=== PATIENT | male | born 1945 | race Caucasian/White ===

== ENCOUNTER 2021-06-15 18:11 | Inpatient (IN) ==
[2021-06-15] MEDS ORDERED: DILTIAZEM 50 MG/10 ML VIAL IV ONE (18:46)
[2021-06-15 18:47] LABS: Basophils # 0.1 10*3/uL (0.0-0.2); Basophils % 0.4 % (0.0-0.8); Eosinophils % 0.4 % (0.00-10.9); Hematocrit 30.8 VOL% (42.0-52.0); Hemoglobin 9.7 GM/DL (14.0-18.0); Immature Granulocytes % 1.1 %; Immature Granulocytes Absolute 0.12 #; Lymphocytes # 1.3 10*3/uL (1.4-4.0); Lymphocytes % 11.8 % (21.2-54.2); Mean Corpuscular HGB Conc 31.5 GM/DL (32-36); Mean Corpuscular Volume 99.4 FL (87-102); Mean Platelet Volume 10.2 FL (9.6-12.0); Monocytes % 9.7 % (1.7-12.7); Neutrophils % 76.6 % (38.7-73.9); Platelet Count 253 T/CUMM (130-400); Red Cell Distribution Width 15.5 % (9.3-17.3); White Blood Count 11.3 T/CUMM (4-12)
[2021-06-15] MEDS ORDERED: SODIUM CHLORIDE 0.9% 1,000 ML IV STA (18:48)
[2021-06-15] MEDS ORDERED: DILTIAZEM 50 MG/10 ML VIAL IV STA (18:49)
[2021-06-15 19:10] LABS: Albumin 3.5 G/DL (3.4-5.0); Bilirubin,Total 0.8 MG/DL (0.20-1.00); Calcium 9.3 MG/DL (8.5-10.1); Osmolality,Calculated 286.2 MOS/KG (273-304); Potassium 4.8 MMOL/L (3.5-5.1); Total Protein 6.8 G/DL (6.4-8.2)
[2021-06-15] MEDS ORDERED: ENOXAPARIN 30 MG/0.3 ML SYRINGE SUBCUT STA (19:19)
[2021-06-15] MEDS ORDERED: AMIODARONE INJ 150 MG in DEXTROSE 5% 100 ML IV ONE (19:49)
[2021-06-15] MEDS ORDERED: AMIODARONE INJ 450 MG in DEXTROSE 5% 241 ML IV SCH (20:00)
[2021-06-15] MEDS ORDERED: SODIUM CHLORIDE 0.9% 2,000 ML IV STA (20:01)
[2021-06-15] MEDS ORDERED: PIPERACILLIN/TAZOBACTAM 3,375 MG in SODIUM CHLORIDE 0.9% 100 ML IV STA (20:01)
[2021-06-15] MEDS ORDERED: ENOXAPARIN 100 MG/ML SYRINGE SUBCUT ONE (20:09)
[2021-06-15] MEDS ORDERED: methylPREDNISolone SOD SUC 125 MG/2 ML VIAL IV ONE (20:17)
[2021-06-15] MEDS ORDERED: ASPIRIN CHEW 81 MG TABLET PO STA (20:19)
[2021-06-15] MEDS ORDERED: FUROSEMIDE 40 MG/4 ML VIAL IV STA ×2 (20:19→21:31)
[2021-06-15] MEDS ORDERED: MAGNESIUM SULF RIDER 2 GM/50 ML PREMIX IV PRN (20:51)
[2021-06-15] MEDS ORDERED: DEXTROSE 10% 250 ML BAG IV PRN (20:51)
[2021-06-15] MEDS ORDERED: MAGNESIUM SULF RIDER 4 GM/100 ML PREMIX IV PRN (20:51)
[2021-06-15] MEDS ORDERED: GLUCAGON 1 MG VIAL IM PRN (20:51)
[2021-06-15] MEDS ORDERED: POTASSIUM CHLORIDE RIDER 10 MEQ/100 ML PREMIX IV PRN (20:56)
[2021-06-15] MEDS ORDERED: SIMETHICONE CHEW 125 MG TABLET PO PRN (20:56)
[2021-06-15] MEDS ORDERED: ACETAMINOPHEN 325 MG TABLET PO PRN (20:56)
[2021-06-15] MEDS ORDERED: ONDANSETRON 4 MG/2 ML VIAL IV PRN (20:56)
[2021-06-15 21:05] LABS: ABG Base Excess -1.8 MMOL/L (-2.5-2.5); ABG HCO3 22.8 MMOL/L (20-26); ABG Oxygen Saturation 89.7 % (95-100); ABG PCO2 42.9 MM HG (35-48); ABG PH 7.352 (7.35-7.45); ABG PO2 67.2 MM HG (80-95); ABG TCO2 21.9 MMOL/L (23-27); Allen Test Positive
[2021-06-15] MEDS ORDERED: carvediloL 3.125 MG TABLET PO SCH (21:30)
[2021-06-15] MEDS: ASCORBIC ACID 500 MG TABLET PO SCH (22:08)
[2021-06-15] MEDS: guaiFENesin/DM ER 600-30 MG TABLET PO SCH (22:08)
[2021-06-15] MEDS: INSULIN REGULAR 100 UNIT/ML SUBCUT SCH (22:08)
[2021-06-15 22:45] LABS: Bilirubin,Urine Negative (Negative); Blood, Urine Negative (Negative); Glucose,Urine (UA) 50 mg/dL (Negative); Hyaline Casts,Urine 1 /LPF (0-3); Ketones,Urine Negative (Negative); Nitrite,Urine Negative (Negative); Protein,Urine Negative; RBC,Urine 2 /HPF (0-4); Squamous Epithelial Cell,Urine Occasional /HPF (0-10); Urine Appearance CLEAR (Clear); Urine Color Straw (Yellow); Urine Specific Gravity 1.026 (1.001-1.035); Urine Urobilinogen < 2.0 EU/DL (<2.0)
[2021-06-16] MEDS: LEVALBUTEROL 1.25 MG/3 ML NEB RESP TX SCH ×4 (00:16→19:35)
[2021-06-16] MEDS ORDERED: ALBUTEROL/IPRATROPIUM 3 ML NEB RESP TX SCH (01:00)
[2021-06-16] MEDS: MELATONIN 3 MG TABLET PO PRN (02:20)
[2021-06-16] MEDS: VANCOMYCIN INJ 1,750 MG in SODIUM CHLORIDE 0.9% 500 ML IV SCH (02:50)
[2021-06-16 04:31] LABS: Basophils % 0.2 % (0.0-0.8); Hemoglobin 8.7 GM/DL (14.0-18.0); Immature Granulocytes % 0.6 %; Immature Granulocytes Absolute 0.06 #; Lymphocytes # 0.6 10*3/uL (1.4-4.0); Lymphocytes % 6.5 % (21.2-54.2); Mean Corpuscular HGB Conc 31.1 GM/DL (32-36); Mean Platelet Volume 10.4 FL (9.6-12.0); Monocytes % 4.6 % (1.7-12.7); Neutrophils % 88.1 % (38.7-73.9); Platelet Count 212 T/CUMM (130-400); Red Cell Distribution Width 15.3 % (9.3-17.3); White Blood Count 9.5 T/CUMM (4-12)
[2021-06-16 04:37] LABS: INR 1.1; PT Patient Result 12.7 SECS (10.5-12.0)
[2021-06-16 05:24] LABS: Calcium 8.4 MG/DL (8.5-10.1); Ferritin 52.7 ng/mL (26-388); Osmolality,Calculated 291.8 MOS/KG (273-304); Potassium 5.2 MMOL/L (3.5-5.1); Risk Ratio 3.68; Thyroid Stimulating Hormone 0.996 uIU/ml (0.358-3.74); VLDL Cholesterol 31.6 MG/DL
[2021-06-16] MEDS: methylPREDNISolone SOD SUC 40 MG/1 ML VIAL IV SCH ×3 (06:20→21:46)
[2021-06-16] MEDS: PIPERACILLIN/TAZOBACTAM 3,375 MG in SODIUM CHLORIDE 0.9% 100 ML IV SCH ×3 (06:23→21:47)
[2021-06-16] MEDS: INSULIN REGULAR 100 UNIT/ML SUBCUT SCH ×4 (08:43→21:46)
[2021-06-16] MEDS ORDERED: ASPIRIN EC 325 MG TABLET PO SCH (09:00)
[2021-06-16] MEDS ORDERED: LOSARTAN 25 MG TABLET PO SCH (09:00)
[2021-06-16] MEDS: FUROSEMIDE 40 MG/4 ML VIAL IV SCH ×2 (09:00→17:00)
[2021-06-16] MEDS: ENOXAPARIN 120 MG/0.8 ML SYRINGE SUBCUT SCH ×2 (09:03→21:44)
[2021-06-16] MEDS ORDERED: VANCOMYCIN INJ 1,250 MG in SODIUM CHLORIDE 0.9% 250 ML IV SCH (09:30)
[2021-06-16] MEDS: VALPROIC ACID 250 MG/5 ML UDCUP PO SCH ×2 (11:21→21:44)
[2021-06-16] MEDS: ASCORBIC ACID 500 MG TABLET PO SCH ×2 (11:22→21:45)
[2021-06-16] MEDS: ZINC GLUCONATE 50 MG TABLET PO SCH (11:22)
[2021-06-16] MEDS: MAGNESIUM OXIDE 400 MG TABLET PO SCH ×3 (11:22→21:44)
[2021-06-16] MEDS: guaiFENesin/DM ER 600-30 MG TABLET PO SCH ×2 (11:22→21:44)
[2021-06-16] MEDS: risperiDONE 0.5 MG TABLET PO SCH (11:22)
[2021-06-16] MEDS: CHOLECALCIFEROL 1,000 UNIT TABLET PO SCH (11:22)
[2021-06-16] MEDS: FERROUS SULFATE 325 MG TABLET PO SCH ×2 (11:22→21:44)
[2021-06-16] MEDS: GABAPENTIN 300 MG CAPSULE PO SCH ×2 (11:23→21:44)
[2021-06-16] MEDS: gemfibroziL 600 MG TABLET PO SCH ×2 (11:23→21:45)
[2021-06-16] MEDS: MULTIVITAMIN (CENTRUM) TABLET PO SCH ×2 (11:23→21:44)
[2021-06-16] MEDS: PANTOPRAZOLE 40 MG TABLET PO SCH (11:23)
[2021-06-16] MEDS: OMEGA 3 ACID ETHYL ESTERS 1 GM CAPSULE PO SCH (11:23)
[2021-06-16] MEDS: INSULIN GLARGINE 100 UNIT/ML SUBCUT SCH (17:03)
[2021-06-16] MEDS: ROSUVASTATIN 20 MG TABLET PO SCH (21:45)
[2021-06-17] MEDS: VANCOMYCIN INJ 1,750 MG in SODIUM CHLORIDE 0.9% 500 ML IV SCH (03:22)
[2021-06-17] MEDS: methylPREDNISolone SOD SUC 40 MG/1 ML VIAL IV SCH ×3 (05:32→22:23)
[2021-06-17 05:41] LABS: Hematocrit 28.8 VOL% (42.0-52.0); Hemoglobin 8.8 GM/DL (14.0-18.0); Immature Granulocytes % 0.8 %; Immature Granulocytes Absolute 0.09 #; Lymphocytes # 0.7 10*3/uL (1.4-4.0); Lymphocytes % 6.8 % (21.2-54.2); Mean Corpuscular HGB Conc 30.6 GM/DL (32-36); Mean Platelet Volume 10.5 FL (9.6-12.0); Monocytes % 4.3 % (1.7-12.7); Neutrophils % 88.1 % (38.7-73.9); Platelet Count 248 T/CUMM (130-400); Red Blood Count 2.88 MC/CUMM (3.8-5.5); Red Cell Distribution Width 15.4 % (9.3-17.3); White Blood Count 10.7 T/CUMM (4-12)
[2021-06-17 05:57] LABS: Calcium 8.3 MG/DL (8.5-10.1); Potassium 4.6 MMOL/L (3.5-5.1)
[2021-06-17] MEDS: PIPERACILLIN/TAZOBACTAM 3,375 MG in SODIUM CHLORIDE 0.9% 100 ML IV SCH ×3 (06:30→22:24)
[2021-06-17] MEDS: LEVALBUTEROL 1.25 MG/3 ML NEB RESP TX SCH ×4 (07:25→19:16)
[2021-06-17] MEDS ORDERED: RIVAROXABAN 10 MG TABLET PO SCH (09:00)
[2021-06-17] MEDS ORDERED: METOPROLOL SUCCINATE XL 50 MG TABLET PO SCH (09:00)
[2021-06-17] MEDS: MULTIVITAMIN (CENTRUM) TABLET PO SCH ×2 (09:19→21:25)
[2021-06-17] MEDS: ASPIRIN EC 81 MG TABLET PO SCH (09:20)
[2021-06-17] MEDS: PANTOPRAZOLE 40 MG TABLET PO SCH (09:20)
[2021-06-17] MEDS: GABAPENTIN 300 MG CAPSULE PO SCH ×2 (09:20→21:25)
[2021-06-17] MEDS: FENOFIBRATE 160 MG TABLET PO SCH (09:20)
[2021-06-17] MEDS: FERROUS SULFATE 325 MG TABLET PO SCH ×2 (09:21→21:25)
[2021-06-17] MEDS: CHOLECALCIFEROL 1,000 UNIT TABLET PO SCH (09:21)
[2021-06-17] MEDS: risperiDONE 0.5 MG TABLET PO SCH (09:21)
[2021-06-17] MEDS: RIVAROXABAN 20 MG TABLET PO SCH (09:22)
[2021-06-17] MEDS: guaiFENesin/DM ER 600-30 MG TABLET PO SCH ×2 (09:22→21:30)
[2021-06-17] MEDS: ZINC GLUCONATE 50 MG TABLET PO SCH (09:22)
[2021-06-17] MEDS: OMEGA 3 ACID ETHYL ESTERS 1 GM CAPSULE PO SCH (09:22)
[2021-06-17] MEDS: METOPROLOL SUCCINATE XL 25 MG TABLET PO SCH (09:22)
[2021-06-17] MEDS: BACILLUS COAGULANS CAPLET PO SCH (09:23)
[2021-06-17] MEDS: ASCORBIC ACID 500 MG TABLET PO SCH ×2 (09:23→21:25)
[2021-06-17] MEDS: VALPROIC ACID 250 MG/5 ML UDCUP PO SCH ×2 (09:24→21:30)
[2021-06-17] MEDS: MAGNESIUM OXIDE 400 MG TABLET PO SCH (09:24)
[2021-06-17] MEDS: gemfibroziL 600 MG TABLET PO SCH ×2 (09:27→21:25)
[2021-06-17] MEDS: INSULIN REGULAR 100 UNIT/ML SUBCUT SCH ×4 (09:28→22:24)
[2021-06-17] MEDS: FUROSEMIDE 40 MG/4 ML VIAL IV SCH ×2 (09:29→17:07)
[2021-06-17 09:51] LABS: ABG Base Excess 0.4 MMOL/L (-2.5-2.5); ABG HCO3 24.8 MMOL/L (20-26); ABG Oxygen Saturation 97.7 % (95-100); ABG PCO2 36.7 MM HG (35-48); ABG PH 7.432 (7.35-7.45); ABG TCO2 22.2 MMOL/L (23-27)
[2021-06-17] MEDS ORDERED: DEXTROSE 10% 25 GM/250 ML BAG IV PRN (13:47)
[2021-06-17] MEDS: INSULIN GLARGINE 100 UNIT/ML SUBCUT SCH (17:13)
[2021-06-17] MEDS: ROSUVASTATIN 20 MG TABLET PO SCH (21:24)
[2021-06-18] MEDS: LEVALBUTEROL 1.25 MG/3 ML NEB RESP TX SCH ×4 (00:36→18:35)
[2021-06-18] MEDS: VANCOMYCIN INJ 1,750 MG in SODIUM CHLORIDE 0.9% 500 ML IV SCH (02:31)
[2021-06-18 05:27] LABS: Hematocrit 29.1 VOL% (42.0-52.0); Immature Granulocytes % 0.7 %; Immature Granulocytes Absolute 0.06 #; Lymphocytes # 0.7 10*3/uL (1.4-4.0); Lymphocytes % 7.9 % (21.2-54.2); Mean Corpuscular HGB Conc 30.9 GM/DL (32-36); Mean Platelet Volume 10.2 FL (9.6-12.0); Monocytes % 5.1 % (1.7-12.7); Neutrophils % 86.3 % (38.7-73.9); Platelet Count 241 T/CUMM (130-400); Red Blood Count 2.97 MC/CUMM (3.8-5.5); White Blood Count 8.2 T/CUMM (4-12)
[2021-06-18] MEDS: methylPREDNISolone SOD SUC 40 MG/1 ML VIAL IV SCH ×3 (05:36→22:03)
[2021-06-18] MEDS: PIPERACILLIN/TAZOBACTAM 3,375 MG in SODIUM CHLORIDE 0.9% 100 ML IV SCH ×3 (05:36→22:03)
[2021-06-18 05:45] LABS: Calcium 8.5 MG/DL (8.5-10.1)
[2021-06-18] MEDS: RIVAROXABAN 20 MG TABLET PO SCH (09:45)
[2021-06-18] MEDS: INSULIN REGULAR 100 UNIT/ML SUBCUT SCH ×4 (09:46→22:02)
[2021-06-18] MEDS: FUROSEMIDE 40 MG/4 ML VIAL IV SCH ×2 (09:47→17:25)
[2021-06-18] MEDS: BACILLUS COAGULANS CAPLET PO SCH (10:02)
[2021-06-18] MEDS: ASPIRIN EC 81 MG TABLET PO SCH (10:02)
[2021-06-18] MEDS: VALPROIC ACID 250 MG/5 ML UDCUP PO SCH ×2 (10:03→21:13)
[2021-06-18] MEDS: MULTIVITAMIN (CENTRUM) TABLET PO SCH ×2 (10:03→21:14)
[2021-06-18] MEDS: OMEGA 3 ACID ETHYL ESTERS 1 GM CAPSULE PO SCH (10:04)
[2021-06-18] MEDS: gemfibroziL 600 MG TABLET PO SCH ×2 (10:04→21:14)
[2021-06-18] MEDS: guaiFENesin/DM ER 600-30 MG TABLET PO SCH ×2 (10:05→21:14)
[2021-06-18] MEDS: MAGNESIUM OXIDE 400 MG TABLET PO SCH (10:05)
[2021-06-18] MEDS: FERROUS SULFATE 325 MG TABLET PO SCH ×2 (10:06→21:14)
[2021-06-18] MEDS: GABAPENTIN 300 MG CAPSULE PO SCH ×2 (10:06→21:14)
[2021-06-18] MEDS: risperiDONE 0.5 MG TABLET PO SCH (10:06)
[2021-06-18] MEDS: PANTOPRAZOLE 40 MG TABLET PO SCH (10:06)
[2021-06-18] MEDS: CHOLECALCIFEROL 1,000 UNIT TABLET PO SCH (10:07)
[2021-06-18] MEDS: FENOFIBRATE 160 MG TABLET PO SCH (10:07)
[2021-06-18] MEDS: METOPROLOL SUCCINATE XL 25 MG TABLET PO SCH (10:07)
[2021-06-18] MEDS: ASCORBIC ACID 500 MG TABLET PO SCH ×2 (10:07→21:13)
[2021-06-18] MEDS: ZINC GLUCONATE 50 MG TABLET PO SCH (10:08)
[2021-06-18] MEDS: ROSUVASTATIN 20 MG TABLET PO SCH (21:13)
[2021-06-19] MEDS: LEVALBUTEROL 1.25 MG/3 ML NEB RESP TX SCH ×4 (00:06→19:30)
[2021-06-19] MEDS: VANCOMYCIN INJ 1,750 MG in SODIUM CHLORIDE 0.9% 500 ML IV SCH (02:04)
[2021-06-19] MEDS: INSULIN GLARGINE 100 UNIT/ML SUBCUT SCH ×2 (05:01→19:07)
[2021-06-19] MEDS: methylPREDNISolone SOD SUC 40 MG/1 ML VIAL IV SCH ×2 (05:44→15:17)
[2021-06-19] MEDS: PIPERACILLIN/TAZOBACTAM 3,375 MG in SODIUM CHLORIDE 0.9% 100 ML IV SCH ×2 (05:44→22:03)
[2021-06-19 05:53] LABS: Hemoglobin 9.6 GM/DL (14.0-18.0); Immature Granulocytes % 0.5 %; Immature Granulocytes Absolute 0.03 #; Lymphocytes # 0.7 10*3/uL (1.4-4.0); Lymphocytes % 11.1 % (21.2-54.2); Mean Corpuscular Volume 96.5 FL (87-102); Monocytes % 7.5 % (1.7-12.7); Neutrophils % 80.9 % (38.7-73.9); Platelet Count 236 T/CUMM (130-400); Red Blood Count 3.11 MC/CUMM (3.8-5.5); Red Cell Distribution Width 14.6 % (9.3-17.3); White Blood Count 6.1 T/CUMM (4-12)
[2021-06-19 06:06] LABS: Calcium 9.7 MG/DL (8.5-10.1); Osmolality,Calculated 285.5 MOS/KG (273-304); Potassium 5.1 MMOL/L (3.5-5.1)
[2021-06-19] MEDS: ASPIRIN EC 81 MG TABLET PO SCH (11:18)
[2021-06-19] MEDS: MULTIVITAMIN (CENTRUM) TABLET PO SCH ×2 (11:18→21:59)
[2021-06-19] MEDS: RIVAROXABAN 20 MG TABLET PO SCH (11:18)
[2021-06-19] MEDS: BACILLUS COAGULANS CAPLET PO SCH (11:18)
[2021-06-19] MEDS: OMEGA 3 ACID ETHYL ESTERS 1 GM CAPSULE PO SCH (11:19)
[2021-06-19] MEDS: FERROUS SULFATE 325 MG TABLET PO SCH ×2 (11:19→21:59)
[2021-06-19] MEDS: gemfibroziL 600 MG TABLET PO SCH ×2 (11:19→21:59)
[2021-06-19] MEDS: MAGNESIUM OXIDE 400 MG TABLET PO SCH (11:19)
[2021-06-19] MEDS: GABAPENTIN 300 MG CAPSULE PO SCH ×2 (11:20→21:59)
[2021-06-19] MEDS: guaiFENesin/DM ER 600-30 MG TABLET PO SCH ×2 (11:20→21:59)
[2021-06-19] MEDS: PANTOPRAZOLE 40 MG TABLET PO SCH (11:20)
[2021-06-19] MEDS: risperiDONE 0.5 MG TABLET PO SCH (11:20)
[2021-06-19] MEDS: FENOFIBRATE 160 MG TABLET PO SCH (11:20)
[2021-06-19] MEDS: METOPROLOL SUCCINATE XL 25 MG TABLET PO SCH (11:20)
[2021-06-19] MEDS: CHOLECALCIFEROL 1,000 UNIT TABLET PO SCH (11:21)
[2021-06-19] MEDS: ZINC GLUCONATE 50 MG TABLET PO SCH (11:21)
[2021-06-19] MEDS: ASCORBIC ACID 500 MG TABLET PO SCH ×2 (11:21→21:58)
[2021-06-19] MEDS: FUROSEMIDE 40 MG/4 ML VIAL IV SCH ×2 (12:03→19:08)
[2021-06-19] MEDS: INSULIN REGULAR 100 UNIT/ML SUBCUT SCH ×4 (12:04→22:02)
[2021-06-19] MEDS: VALPROIC ACID 250 MG/5 ML UDCUP PO SCH ×2 (12:04→22:01)
[2021-06-19] MEDS: ROSUVASTATIN 20 MG TABLET PO SCH (21:59)
[2021-06-20] MEDS: LEVALBUTEROL 1.25 MG/3 ML NEB RESP TX SCH ×4 (00:30→19:50)
[2021-06-20 04:28] LABS: Eosinophils # 0.1 10*3/uL (0.0-0.87); Eosinophils % 1.2 % (0.00-10.9); Hematocrit 34.3 VOL% (42.0-52.0); Hemoglobin 11.2 GM/DL (14.0-18.0); Immature Granulocytes % 0.3 %; Immature Granulocytes Absolute 0.02 #; Lymphocytes # 1.8 10*3/uL (1.4-4.0); Mean Corpuscular HGB Conc 32.7 GM/DL (32-36); Mean Corpuscular Volume 94.5 FL (87-102); Mean Platelet Volume 10.1 FL (9.6-12.0); Monocytes % 10.9 % (1.7-12.7); Neutrophils % 62.6 % (38.7-73.9); Platelet Count 239 T/CUMM (130-400); Red Blood Count 3.63 MC/CUMM (3.8-5.5); Red Cell Distribution Width 14.4 % (9.3-17.3); White Blood Count 7.4 T/CUMM (4-12)
[2021-06-20 04:42] LABS: Calcium 9.8 MG/DL (8.5-10.1); Osmolality,Calculated 276.4 MOS/KG (273-304); Potassium 3.6 MMOL/L (3.5-5.1)
[2021-06-20] MEDS: PIPERACILLIN/TAZOBACTAM 3,375 MG in SODIUM CHLORIDE 0.9% 100 ML IV SCH ×3 (05:27→20:54)
[2021-06-20] MEDS ORDERED: methylPREDNISolone SOD SUC 40 MG/1 ML VIAL IV SCH (06:00)
[2021-06-20] MEDS: INSULIN REGULAR 100 UNIT/ML SUBCUT SCH ×4 (07:34→21:17)
[2021-06-20] MEDS: CHOLECALCIFEROL 1,000 UNIT TABLET PO SCH (10:19)
[2021-06-20] MEDS: GABAPENTIN 300 MG CAPSULE PO SCH ×2 (10:20→20:48)
[2021-06-20] MEDS: OMEGA 3 ACID ETHYL ESTERS 1 GM CAPSULE PO SCH (10:21)
[2021-06-20] MEDS: ASCORBIC ACID 500 MG TABLET PO SCH ×2 (10:21→20:47)
[2021-06-20] MEDS: RIVAROXABAN 20 MG TABLET PO SCH (10:21)
[2021-06-20] MEDS: ASPIRIN EC 81 MG TABLET PO SCH (10:21)
[2021-06-20] MEDS: MULTIVITAMIN (CENTRUM) TABLET PO SCH ×2 (10:21→20:48)
[2021-06-20] MEDS: BACILLUS COAGULANS CAPLET PO SCH (10:22)
[2021-06-20] MEDS: PANTOPRAZOLE 40 MG TABLET PO SCH (10:22)
[2021-06-20] MEDS: MAGNESIUM OXIDE 400 MG TABLET PO SCH (10:22)
[2021-06-20] MEDS: FERROUS SULFATE 325 MG TABLET PO SCH ×2 (10:22→20:52)
[2021-06-20] MEDS: ZINC GLUCONATE 50 MG TABLET PO SCH (10:22)
[2021-06-20] MEDS: gemfibroziL 600 MG TABLET PO SCH ×2 (10:23→20:48)
[2021-06-20] MEDS: guaiFENesin/DM ER 600-30 MG TABLET PO SCH ×2 (10:23→20:47)
[2021-06-20] MEDS: risperiDONE 0.5 MG TABLET PO SCH (10:23)
[2021-06-20] MEDS: METOPROLOL SUCCINATE XL 25 MG TABLET PO SCH (10:23)
[2021-06-20] MEDS: FENOFIBRATE 160 MG TABLET PO SCH (10:23)
[2021-06-20] MEDS: VALPROIC ACID 250 MG/5 ML UDCUP PO SCH ×2 (10:24→20:49)
[2021-06-20] MEDS: FUROSEMIDE 40 MG/4 ML VIAL IV SCH ×2 (10:25→17:55)
[2021-06-20] MEDS: INSULIN GLARGINE 100 UNIT/ML SUBCUT SCH (18:00)
[2021-06-20] MEDS: ROSUVASTATIN 20 MG TABLET PO SCH (20:47)
[2021-06-20] MEDS: MELATONIN 3 MG TABLET PO PRN (20:48)
[2021-06-21] MEDS: LEVALBUTEROL 1.25 MG/3 ML NEB RESP TX SCH ×4 (00:40→19:21)
[2021-06-21 05:49] LABS: Basophils % 0.1 % (0.0-0.8); Eosinophils # 0.2 10*3/uL (0.0-0.87); Eosinophils % 3.2 % (0.00-10.9); Hematocrit 34.4 VOL% (42.0-52.0); Hemoglobin 11.2 GM/DL (14.0-18.0); Immature Granulocytes % 0.6 %; Immature Granulocytes Absolute 0.04 #; Lymphocytes # 1.9 10*3/uL (1.4-4.0); Lymphocytes % 27.8 % (21.2-54.2); Mean Corpuscular HGB Conc 32.6 GM/DL (32-36); Mean Platelet Volume 10.4 FL (9.6-12.0); Monocytes % 12.2 % (1.7-12.7); Neutrophils % 56.1 % (38.7-73.9); Platelet Count 245 T/CUMM (130-400); Red Blood Count 3.66 MC/CUMM (3.8-5.5); Red Cell Distribution Width 14.6 % (9.3-17.3); White Blood Count 6.9 T/CUMM (4-12)
[2021-06-21 06:09] LABS: Calcium 9.7 MG/DL (8.5-10.1); Osmolality,Calculated 280.7 MOS/KG (273-304); Potassium 3.5 MMOL/L (3.5-5.1)
[2021-06-21] MEDS: PIPERACILLIN/TAZOBACTAM 3,375 MG in SODIUM CHLORIDE 0.9% 100 ML IV SCH ×3 (07:20→21:23)
[2021-06-21] MEDS ORDERED: POTASSIUM CHLORIDE 20 MEQ TABLET PO ONE (07:50)
[2021-06-21] MEDS: FENOFIBRATE 160 MG TABLET PO SCH (09:30)
[2021-06-21] MEDS: ZINC GLUCONATE 50 MG TABLET PO SCH (09:30)
[2021-06-21] MEDS: risperiDONE 0.5 MG TABLET PO SCH (09:30)
[2021-06-21] MEDS: BACILLUS COAGULANS CAPLET PO SCH (09:30)
[2021-06-21] MEDS: MAGNESIUM OXIDE 400 MG TABLET PO SCH (09:30)
[2021-06-21] MEDS: guaiFENesin/DM ER 600-30 MG TABLET PO SCH ×2 (09:30→21:25)
[2021-06-21] MEDS: OMEGA 3 ACID ETHYL ESTERS 1 GM CAPSULE PO SCH (09:31)
[2021-06-21] MEDS: GABAPENTIN 300 MG CAPSULE PO SCH ×2 (09:31→21:25)
[2021-06-21] MEDS: ASPIRIN EC 81 MG TABLET PO SCH (09:31)
[2021-06-21] MEDS: ASCORBIC ACID 500 MG TABLET PO SCH ×2 (09:31→21:25)
[2021-06-21] MEDS: FUROSEMIDE 40 MG TABLET PO SCH ×2 (09:31→16:07)
[2021-06-21] MEDS: METOPROLOL SUCCINATE XL 25 MG TABLET PO SCH (09:31)
[2021-06-21] MEDS: MULTIVITAMIN (CENTRUM) TABLET PO SCH ×2 (09:31→21:24)
[2021-06-21] MEDS: CHOLECALCIFEROL 1,000 UNIT TABLET PO SCH (09:31)
[2021-06-21] MEDS: gemfibroziL 600 MG TABLET PO SCH ×2 (09:31→21:24)
[2021-06-21] MEDS: PANTOPRAZOLE 40 MG TABLET PO SCH (09:32)
[2021-06-21] MEDS: FERROUS SULFATE 325 MG TABLET PO SCH ×2 (09:32→21:24)
[2021-06-21] MEDS: RIVAROXABAN 20 MG TABLET PO SCH (09:32)
[2021-06-21] MEDS: VALPROIC ACID 250 MG/5 ML UDCUP PO SCH ×2 (09:32→21:24)
[2021-06-21] MEDS: INSULIN REGULAR 100 UNIT/ML SUBCUT SCH ×4 (09:36→21:24)
[2021-06-21] MEDS: INSULIN GLARGINE 100 UNIT/ML SUBCUT SCH (16:08)
[2021-06-21] MEDS: ROSUVASTATIN 20 MG TABLET PO SCH (21:24)
[2021-06-21] MEDS: MELATONIN 3 MG TABLET PO PRN (23:14)
[2021-06-22] MEDS: LEVALBUTEROL 1.25 MG/3 ML NEB RESP TX SCH ×4 (00:30→19:40)
[2021-06-22] MEDS: PIPERACILLIN/TAZOBACTAM 3,375 MG in SODIUM CHLORIDE 0.9% 100 ML IV SCH ×3 (04:20→20:50)
[2021-06-22 05:17] LABS: Basophils % 0.2 % (0.0-0.8); Eosinophils # 0.3 10*3/uL (0.0-0.87); Eosinophils % 4.9 % (0.00-10.9); Hematocrit 34.2 VOL% (42.0-52.0); Immature Granulocytes % 0.8 %; Immature Granulocytes Absolute 0.05 #; Lymphocytes # 1.6 10*3/uL (1.4-4.0); Lymphocytes % 26.8 % (21.2-54.2); Mean Corpuscular HGB Conc 32.2 GM/DL (32-36); Monocytes % 11.4 % (1.7-12.7); Neutrophils % 55.9 % (38.7-73.9); Platelet Count 232 T/CUMM (130-400); Red Cell Distribution Width 14.6 % (9.3-17.3)
[2021-06-22 05:36] LABS: Albumin 2.7 G/DL (3.4-5.0); Bilirubin,Total 0.5 MG/DL (0.20-1.00); Calcium 8.7 MG/DL (8.5-10.1); Osmolality,Calculated 277.5 MOS/KG (273-304); Potassium 3.9 MMOL/L (3.5-5.1); Total Protein 6.7 G/DL (6.4-8.2)
[2021-06-22] MEDS: INSULIN REGULAR 100 UNIT/ML SUBCUT SCH ×4 (08:17→20:44)
[2021-06-22] MEDS: ASPIRIN EC 81 MG TABLET PO SCH (09:35)
[2021-06-22] MEDS: BACILLUS COAGULANS CAPLET PO SCH (09:35)
[2021-06-22] MEDS: RIVAROXABAN 20 MG TABLET PO SCH (09:35)
[2021-06-22] MEDS: CHOLECALCIFEROL 1,000 UNIT TABLET PO SCH (09:35)
[2021-06-22] MEDS: GABAPENTIN 300 MG CAPSULE PO SCH ×2 (09:35→20:43)
[2021-06-22] MEDS: MAGNESIUM OXIDE 400 MG TABLET PO SCH (09:36)
[2021-06-22] MEDS: OMEGA 3 ACID ETHYL ESTERS 1 GM CAPSULE PO SCH (09:36)
[2021-06-22] MEDS: ZINC GLUCONATE 50 MG TABLET PO SCH (09:36)
[2021-06-22] MEDS: ASCORBIC ACID 500 MG TABLET PO SCH ×2 (09:36→20:43)
[2021-06-22] MEDS: PANTOPRAZOLE 40 MG TABLET PO SCH (09:36)
[2021-06-22] MEDS: FERROUS SULFATE 325 MG TABLET PO SCH ×2 (09:36→20:43)
[2021-06-22] MEDS: gemfibroziL 600 MG TABLET PO SCH ×2 (09:36→20:44)
[2021-06-22] MEDS: risperiDONE 0.5 MG TABLET PO SCH (09:36)
[2021-06-22] MEDS: MULTIVITAMIN (CENTRUM) TABLET PO SCH ×2 (09:36→20:44)
[2021-06-22] MEDS: POTASSIUM CHLORIDE 20 MEQ TABLET PO SCH (09:36)
[2021-06-22] MEDS: METOPROLOL SUCCINATE XL 25 MG TABLET PO SCH (09:36)
[2021-06-22] MEDS: VALPROIC ACID 250 MG/5 ML UDCUP PO SCH ×2 (09:37→20:44)
[2021-06-22] MEDS: FENOFIBRATE 160 MG TABLET PO SCH (09:37)
[2021-06-22] MEDS: guaiFENesin/DM ER 600-30 MG TABLET PO SCH ×2 (09:37→20:47)
[2021-06-22] MEDS: FUROSEMIDE 40 MG TABLET PO SCH ×2 (09:37→16:11)
[2021-06-22] MEDS: INSULIN GLARGINE 100 UNIT/ML SUBCUT SCH (16:11)
[2021-06-22] MEDS: ROSUVASTATIN 20 MG TABLET PO SCH (20:43)
[2021-06-22] MEDS: MELATONIN 3 MG TABLET PO PRN (20:44)
[2021-06-23] MEDS: LEVALBUTEROL 1.25 MG/3 ML NEB RESP TX SCH ×3 (00:25→11:37)
[2021-06-23 05:21] LABS: Basophils % 0.4 % (0.0-0.8); Eosinophils # 0.2 10*3/uL (0.0-0.87); Eosinophils % 4.7 % (0.00-10.9); Hematocrit 33.6 VOL% (42.0-52.0); Hemoglobin 10.7 GM/DL (14.0-18.0); Immature Granulocytes % 0.8 %; Immature Granulocytes Absolute 0.04 #; Lymphocytes # 1.5 10*3/uL (1.4-4.0); Lymphocytes % 29.2 % (21.2-54.2); Mean Corpuscular HGB Conc 31.8 GM/DL (32-36); Mean Platelet Volume 10.1 FL (9.6-12.0); Monocytes % 13.1 % (1.7-12.7); Neutrophils % 51.8 % (38.7-73.9); Platelet Count 225 T/CUMM (130-400); Red Cell Distribution Width 14.8 % (9.3-17.3); White Blood Count 5.1 T/CUMM (4-12)
[2021-06-23 05:52] LABS: Albumin 2.8 G/DL (3.4-5.0); Bilirubin,Total 0.4 MG/DL (0.20-1.00); Osmolality,Calculated 275.2 MOS/KG (273-304); Potassium 3.4 MMOL/L (3.5-5.1); Total Protein 6.6 G/DL (6.4-8.2)
[2021-06-23 08:19] VITALS: BP 118/70
[2021-06-23] MEDS: INSULIN REGULAR 100 UNIT/ML SUBCUT SCH (09:33)
[2021-06-23] MEDS: VALPROIC ACID 250 MG/5 ML UDCUP PO SCH (09:39)
[2021-06-23] MEDS: gemfibroziL 600 MG TABLET PO SCH (09:40)
[2021-06-23] MEDS: GABAPENTIN 300 MG CAPSULE PO SCH (09:40)
[2021-06-23] MEDS: CHOLECALCIFEROL 1,000 UNIT TABLET PO SCH (09:40)
[2021-06-23] MEDS: MULTIVITAMIN (CENTRUM) TABLET PO SCH (09:40)
[2021-06-23] MEDS: POTASSIUM CHLORIDE 20 MEQ TABLET PO SCH (09:41)
[2021-06-23] MEDS: ZINC GLUCONATE 50 MG TABLET PO SCH (09:41)
[2021-06-23] MEDS: METOPROLOL SUCCINATE XL 25 MG TABLET PO SCH (09:41)
[2021-06-23] MEDS: RIVAROXABAN 20 MG TABLET PO SCH (09:41)
[2021-06-23] MEDS: MAGNESIUM OXIDE 400 MG TABLET PO SCH (09:42)
[2021-06-23] MEDS: risperiDONE 0.5 MG TABLET PO SCH (09:42)
[2021-06-23] MEDS: ASPIRIN EC 81 MG TABLET PO SCH (09:42)
[2021-06-23] MEDS: ASCORBIC ACID 500 MG TABLET PO SCH (09:42)
[2021-06-23] MEDS: OMEGA 3 ACID ETHYL ESTERS 1 GM CAPSULE PO SCH (09:42)
[2021-06-23] MEDS: FENOFIBRATE 160 MG TABLET PO SCH (09:42)
[2021-06-23] MEDS: BACILLUS COAGULANS CAPLET PO SCH (09:42)
[2021-06-23] MEDS: FERROUS SULFATE 325 MG TABLET PO SCH (09:42)
[2021-06-23] MEDS: FUROSEMIDE 40 MG TABLET PO SCH (09:43)
[2021-06-23] MEDS: guaiFENesin/DM ER 600-30 MG TABLET PO SCH (09:43)
[2021-06-23] MEDS: PANTOPRAZOLE 40 MG TABLET PO SCH (09:43)
== END 2021-06-23 12:29 | disposition home or self-care (01) | DRG 871 ==
LOC: N.ED 18:11 → N.EDINP 20:54 → SUATTDRO 20:54 → N.TELES 06-16 18:36
PROVIDERS: ADMIT Internal Medicine; ATTEND Internal Medicine